=== PATIENT | female | born 1945 | race Caucasian/White ===

== ENCOUNTER 2025-01-10 15:36 | Inpatient (IN) | payer OTHER ==
[2025-01-10 17:26] LABS: HEMATOCRIT 34.7 % (34.1-44.9); HEMOGLOBIN 11.7 g/dL (11.2-15.7); MCHC 33.7 g/dl (32.2-35.5); MEAN CELL VOLUME 84.2 fl (79.4-94.8); MEAN PLT VOLUME 9.6 fl (9.4-12.3); PLATELET COUNT 344 x10^3/uL (182-369); RDW 12.5 % (12.5-17.0)
[2025-01-10 17:36] LABS: INR 1.09 (0.83-1.09)
[2025-01-10] MEDS ORDERED: ACETAMINOPHEN INJECTION 100 ML ONE (17:37)
[2025-01-10 17:38] LABS: ACTIVATED PTT 27.2 SECONDS (25.2-36.5)
[2025-01-10 17:45] LABS: POTASSIUM 3.6 mmol/L (3.5-5.1)
[2025-01-10] MEDS: ACETAMINOPHEN 1000 MG/100 ML BAG IVPB ONE (17:47)
[2025-01-10 17:48] LABS: CALCIUM 9.4 mg/dL (8.5-10.1)
[2025-01-10 17:49] LABS: ALBUMIN 3.4 g/dl (3.4-5.0); BLOOD UREA NITROGEN 23.2 mg/dL (7-18)
[2025-01-10 17:52] LABS: CREATININE 0.7 mg/dL (0.55-1.3)
[2025-01-10 17:53] LABS: BILIRUBIN,TOTAL 0.7 mg/dL (0.2-1); TOT PROT 6.9 g/dl (6.4-8.2)
[2025-01-10 17:57] LABS: N-TERMINAL BNP 119.9 pg/ml (5-450)
[2025-01-10] MEDS ORDERED: CEFTRIAXONE 2 GM-D5W BAG 2 GM/50 ML BAG IVPB ONE (18:27)
[2025-01-10] MEDS: SODIUM CHLORIDE 0.9% 500 ML INFUS.BAG IV ONE (19:28)
[2025-01-10] MEDS: CEFTRIAXONE 2,000 MG in DEXTROSE 5%-WATER - 50 ML IVPB ONE (19:28)
[2025-01-10] MEDS ORDERED: ACETAMINOPHEN 1000 MG/100 ML BAG IVPB PRN (20:54)
[2025-01-10] MEDS ORDERED: ACETAMINOPHEN 500 MG TABLET (FP) ONE (21:28)
[2025-01-10] MEDS: ACETAMINOPHEN 500 MG TABLET (FP) PO SCH (21:31)
[2025-01-11 01:08] VITALS: BMI 29.5
[2025-01-11] MEDS: AMPICILLIN NA/SULBACTAM NA 3 GM in SODIUM CHLORIDE 100 ML IVPB SCH (02:21)
[2025-01-11 09:45] LABS: ABSOLUTE IMMATURE GRANULOCYTES 0.02 x10^3/uL (0.0-0.031); BASOPHILS # 0.04 x10^3/uL (0.01-0.08); EOSINOPHIL % 4.7 % (0.7-5.8); EOSINOPHILS # 0.22 x10^3/uL (0.04-0.36); HEMATOCRIT 34.9 % (34.1-44.9); HEMOGLOBIN 11.7 g/dL (11.2-15.7); MCHC 33.5 g/dl (32.2-35.5); MEAN CELL VOLUME 83.9 fl (79.4-94.8); MEAN PLT VOLUME 9.8 fl (9.4-12.3); MONOCYTE # 0.28 x10^3/uL (0.24-0.86); MONOCYTE % 5.9 % (4.7-12.5); PLATELET COUNT 345 x10^3/uL (182-369); RDW 12.5 % (12.5-17.0)
[2025-01-11] MEDS: ENOXAPARIN NA (PORCINE) 40 MG/0.4 ML DISP.SYRIN SQ SCH (09:53)
[2025-01-11] MEDS: LOSARTAN POTASSIUM 50 MG TABLET PO SCH (09:53)
[2025-01-11] MEDS ORDERED: CEFTRIAXONE 2 GM-D5W BAG 2 GM/50 ML BAG IVPB SCH (10:00)
[2025-01-11 10:06] LABS: POTASSIUM 3.5 mmol/L (3.5-5.1)
[2025-01-11 10:09] LABS: ALBUMIN 3.2 g/dl (3.4-5.0)
[2025-01-11 10:13] LABS: CALCIUM 9.2 mg/dL (8.5-10.1)
[2025-01-11 10:14] LABS: CREATININE 0.6 mg/dL (0.55-1.3); MAGNESIUM 1.8 mg/dL (1.8-2.4); PHOSPHOROUS 3.7 mg/dL (2.5-4.9)
[2025-01-11 10:16] LABS: BILIRUBIN,TOTAL 0.7 mg/dL (0.2-1); TOT PROT 6.8 g/dl (6.4-8.2)
[2025-01-11] MEDS: CHLORTHALIDONE 25 MG TABLET PO SCH (12:10)
[2025-01-11] MEDS: ATORVASTATIN CA 10 MG TABLET (FP) PO SCH (21:27)
[2025-01-12 09:05] LABS: ABSOLUTE IMMATURE GRANULOCYTES 0.01 x10^3/uL (0.0-0.031); BASOPHILS # 0.03 x10^3/uL (0.01-0.08); EOSINOPHIL % 5.5 % (0.7-5.8); EOSINOPHILS # 0.26 x10^3/uL (0.04-0.36); HEMATOCRIT 33.8 % (34.1-44.9); HEMOGLOBIN 11.1 g/dL (11.2-15.7); MCHC 32.8 g/dl (32.2-35.5); MEAN CELL VOLUME 84.5 fl (79.4-94.8); MEAN PLT VOLUME 9.8 fl (9.4-12.3); MONOCYTE # 0.37 x10^3/uL (0.24-0.86); MONOCYTE % 7.8 % (4.7-12.5); PLATELET COUNT 315 x10^3/uL (182-369); RDW 12.5 % (12.5-17.0)
[2025-01-12 09:41] LABS: POTASSIUM 3.2 mmol/L (3.5-5.1)
[2025-01-12 09:48] LABS: CALCIUM 9.1 mg/dL (8.5-10.1)
[2025-01-12 09:49] LABS: BLOOD UREA NITROGEN 8.4 mg/dL (7-18); CREATININE 0.6 mg/dL (0.55-1.3); MAGNESIUM 1.9 mg/dL (1.8-2.4)
[2025-01-12 09:50] LABS: BILIRUBIN,TOTAL 0.5 mg/dL (0.2-1); TOT PROT 6.3 g/dl (6.4-8.2)
[2025-01-12] MEDS: MINERAL OIL/PET HY-PHL TOPICAL OINTMENT 454 GM JAR TP SCH (12:12)
[2025-01-12] MEDS: POTASSIUM CHLORIDE ORAL LIQUID 20 MEQ/15 ML PO ONE (15:30)
[2025-01-13 08:57] LABS: ABSOLUTE IMMATURE GRANULOCYTES 0.01 x10^3/uL (0.0-0.031); BASOPHILS # 0.02 x10^3/uL (0.01-0.08); EOSINOPHIL % 6.2 % (0.7-5.8); EOSINOPHILS # 0.27 x10^3/uL (0.04-0.36); HEMATOCRIT 34.7 % (34.1-44.9); HEMOGLOBIN 11.5 g/dL (11.2-15.7); MCHC 33.1 g/dl (32.2-35.5); MEAN CELL VOLUME 84.4 fl (79.4-94.8); MEAN PLT VOLUME 9.8 fl (9.4-12.3); MONOCYTE # 0.35 x10^3/uL (0.24-0.86); PLATELET COUNT 317 x10^3/uL (182-369); RDW 12.6 % (12.5-17.0)
[2025-01-13 09:16] LABS: ALBUMIN 3.2 g/dl (3.4-5.0); BLOOD UREA NITROGEN 10.1 mg/dL (7-18); CALCIUM 9.5 mg/dL (8.5-10.1); POTASSIUM 3.1 mmol/L (3.5-5.1)
[2025-01-13 09:17] LABS: MAGNESIUM 1.7 mg/dL (1.8-2.4)
[2025-01-13 09:19] LABS: CREATININE 0.6 mg/dL (0.55-1.3)
[2025-01-13 09:21] LABS: BILIRUBIN,TOTAL 0.5 mg/dL (0.2-1); TOT PROT 6.5 g/dl (6.4-8.2)
[2025-01-13 11:21] VITALS: RESP 18
[2025-01-13 16:21] VITALS: BP 137/68; PULSE 72; TEMP 97.9
== END 2025-01-13 17:18 | disposition home or self-care (01) | DRG 603 ==
LOC: JER 15:36 → JERBED 20:36 → J8W 01-11 00:30
PROVIDERS: ADMIT Hospitalist; ATTEND Internal Medicine
DX: L03.116 Cellulitis of left lower limb (principal); R78.81 Bacteremia; I10 Essential (primary) hypertension; E78.5 Hyperlipidemia, unspecified; I87.2 Venous insufficiency (chronic) (peripheral)
CPT/HCPCS: 36415; 71045-TC-FY; 73590-TC-LT-FY; 73610-TC-LT-FY; 73630-TC-LT; 80053; 83735; 83880; 84100; 85025; 85027; 85610; 85651; 85730; 86140; 86850; 86900; 86901; 87040; 93005; 93010; 93971-TC; 99285-25; J0131